=== PATIENT | male | born 1945 | race Caucasian/White ===

== ENCOUNTER → 2023-10-29 10:46 | Outpatient (REF) | payer MEDICARE, OTHER, SELFPAY ==
[2023-10-29 11:23] LABS: % Basophils 0.6 % (0-2); % Eosinophils 2.7 % (0-6); % Immature Granulocytes 0.5 % (0-0.5); % Lymphocytes 22.3 % (20.5-51.1); % Monocytes 7.8 % (1.7-9.3); % Neutrophils 66.1 % (42.2-75.2); Absolute Basophils 0.1 10^3/uL (0-0.2); Absolute Eosinophils 0.3 10^3/uL (0-0.7); Absolute Immature Granulocytes 0.1 10^3/uL (0-0.05); Absolute Lymphocytes 2.1 10^3/uL (1.2-3.4); Absolute Monocytes 0.8 10^3/uL (0.1-0.6); Absolute Neutrophils 6.3 10^3/uL (1.4-6.5); Hematocrit 40.1 % (39.0-52.0); Hemoglobin 13.8 g/dL (13.0-18.0); Mean Corp Hgb Conc. 34.4 g/dL (33.0-37.0); Mean Corpuscular Hgb 30.9 pg (27.0-31.0); Mean Corpuscular Volume 89.9 fL (80.0-94.0); Mean Platelet Volume 9.6 fL (7.4-10.4); Nucleated Red Blood Cells % 0 % (-); Platelet Count 214 10^3/uL (130-400); Red Blood Cell Count 4.46 10^6/uL (4.70-6.10); Red Cell Dist. Width 13.6 % (11.5-14.5); White Blood Cell Count 9.6 10^3/uL (4.8-10.8)
[2023-10-29 11:41] LABS: INR 1.59; PT 18.8 Sec (11.4-14.6)
[2023-10-29 11:52] LABS: ALT (SGPT) 18 U/L (0-50); AST (SGOT) 28 U/L (17-59); Alkaline Phosphatase 71 U/L (38-126); Blood Urea Nitrogen 22 mg/dl (9-20); Calcium 9.4 mg/dl (8.4-10.2); Carbon Dioxide 23 mmol/L (22-30); Chloride 102 mmol/L (98-107); Glucose 150 mg/dl (70-99); Magnesium 1.3 mg/dl (1.6-2.3); Potassium 4.6 mmol/L (3.5-5.1); Sodium 131 mmol/L (135-145); Total Bilirubin 0.7 mg/dl (0.2-1.3); Total Protein 7.3 g/dl (6.3-8.2); eGFR 47.65
== END ==
LOC: SDSPAT 10:46
PROVIDERS: ATTENDING PHYSICIAN Internal Medicine Cardiovascular Disease; FAMILY PHYSICIAN Family Medicine; OTHER PHYSICIAN Internal Medicine Cardiovascular Disease
DX: Z01.818 Encounter for other preprocedural examination (principal); I48.0 Paroxysmal atrial fibrillation; I48.3 Typical atrial flutter
CPT/HCPCS: 36415; 75572; 80053; 83735; 85025; 85610; 86850; 86900; 86901; 93005; Q9967

== ENCOUNTER 2023-11-15 05:54 | Day surgery (SDC) | payer MEDICARE, OTHER, SELFPAY ==
[2023-10-29 11:00] VITALS: BMI 29.5
[2023-11-12 09:33] LABS: Magnesium 1.3 mg/dl (1.6-2.3); Sodium 133 mmol/L (135-145)
[2023-11-15] VITALS (19 sets, daily range): BP systolic 132–181; BP diastolic 67–101; BMI 28.2
[2023-11-15 06:50] LABS: Glucose - Point of Care 126 mg/dl (70-99)
[2023-11-15 09:13] LABS: ACT-LR - POC 382 Seconds (116-155)
[2023-11-15 09:34] LABS: ACT-LR - POC 294 Seconds (116-155)
--- NOTE | 2023-11-15 10:18 | ITS.CL.ABL ---
[employer] - Ablation
Ablation
Procedure Report:
ELECTROPHYSIOLOGY ABLATION STUDY
DATE:: November 15, 2023 REFERRING: Dr. Damien Gregory
INDICATION: Paroxysmal supraventricular tachycardia in the form of atrial fibrillation. Also with documented typical atrial flutter
HISTORY: See H and P. As above
ANTIARRHYTHMIC DRUG: Limited in medications due to bradycardia
PRE-PROCEDURE ANNIE: No atrial thrombus on intracardiac ultrasound
PRESENTING RHYTHM: Sinus bradycardia
'TIME-OUT': called and confirmed.
SEDATION/ANESTHESIA: provided via the anesthesia department using general anesthesia (LMA).
INTRAVENOUS/ARTERIAL ACCESS:
Right femoral venous - 8Fr
Left femoral venous - 8 Fr, 6 Fr
Ultrasound guidance for bilateral femoral vein access was utilized by me to obtain access with demonstration of normal anatomy
CHADS-VASC Score:
HAS-Bled Score
PROCEDURE:
1. A decapolar CS catheter was placed within the CS for mapping and pacing. This was also used as the reference catheter for the 3-D map. We performed the CTI flutter ablation upfront with a 10 Welsh steerable sheath which was also used for the
transseptal puncture. Utilizing a 4 mm tactic cath from the tricuspid annulus back towards the IVC bidirectional block was brought about with interest was conduction time of 160 ms utilizing the 4 mm tactic cath at 30 W, 42 degrees and up to 22nd
lesions.
2. The intracardiac ultrasound catheter was positioned in the RA to identify the FO for targeting of transseptal puncture, assist in identification of the pulmonary vein ostia, monitoring pre and post ablation pulmonary vein flow velocities,
monitoring for 'bubble' formation during RF application as a sign of thermal injury, and to monitor for pericardial effusion during mapping and ablation procedure. Left atrial size, LV ejection fraction, and pulmonary vein flows were monitored
pre and post ablation procedure. The other valves were inspected and found to be free of significant regurgitation or stenosis.
3. Half of the calculated heparin bolus was administered prior to the first transeptal puncture. Transseptal puncture was performed to diagnose RA and LA pressure so that safety of LA mapping and ablation could be further assessed, and to access
the left atrium and pulmonary veins for mapping and ablation. This entailed advancing an 10 Welsh steerable with dilator into the superior vena cava and withdrawing both (monitoring intracardiac ultrasound, fluoroscopy and tip pressure) with the
tip oriented toward the atrial septum. The fossa ovalis was engaged (indicated by sudden displacement of the sheath tip as well as tenting of the fossa seen on intracardiac ultrasound). Left atrial access required a pass with the [place]
needle extended. Left atrial catheter position was confirmed by pressure monitoring (RA mean pressure 8 mm Hg and LA mean presure 14 mm Hg), LA saturation (99%), as well as fluoroscopy. The sheath was advanced over the dilator and positioned in
the left atrium. The remainder of the calculated heparin bolus was administered and heparin was
infused to maintain ACT at 300 -350 seconds throughout the case.
4. RA pacing was performed via the proximal decapolar poles and LA pacing was performed via the distal decapolr poles.
5. A quadrapolar catheter was first positioned at the His position for His Bundle recording which was tagged via the 3-D Navex sytem, and then passed to the RVA for RV pacing and recording.
6. The ablation catheter was positioned through one of the transeptal seaths and a 20 pole ring mapping catheter was positioned through the second seath into the LA and then the ostia of the LIPV, LSPV, RSPV and the RIPV.
7. Next, a 3-D map was created using Navex. A 3-D reconstructed CT image was compared to the 3-D Navex map to assist in anatomic interpretation, mapping and ablation. The CT image and the NavX image were fused.
8. After transseptal puncture the 10 Welsh steerable sheath was exchanged for a 12 Welsh Contour sheath and the pulsed light catheter was brought to the left atrium. Utilizing both ostial and antral lesions around each of the 4 pulmonary veins
entrance and exit block was confirmed in all 4 pulmonary veins utilizing pulsed field ablation. Patient was inducible for any other tachyarrhythmias after ablation.
9. Normal sinus node AV node function were noted.
TOTAL FLOURO TIME: 21.9 minutes 183 mGy
TOTAL RF DURATION: 0 minutes
REVERSAL OF HEPARIN: 35 mg of protamine, slow IV administration
COMPLICATIONS:
None
Intracardiac US shows no pericardial effusion post ablation.
SUMMARY:
Complex left atrial mapping and ablation.
CTI flutter ablation as above and PVI with pulse select catheter�PFA
RECOMMENDATIONS:
1. Admit to monitored bed.
2. Resume anticoagulation
3. Out of bed 4 hours consider same-day discharge
4. Continue Cardizem and low-dose and Eliquis for minimum 3 months
Copy to: Dr. Damien Gregory
[2023-11-15] MEDS: ANESTHETIC LOZENGE 1 LOZENGE PO (10:23)
[2023-11-15] MEDS: TORADOL 15 MG IV (11:00)
[2023-11-15] MEDS: ZOFRAN 4 MG IV (11:09)
[2023-11-15] MEDS: MAALOX 30 ML PO (11:16)
[2023-11-15] MEDS: PROTONIX 40 MG PO (12:30)
--- NOTE | 2023-11-15 14:27 | W.PN.UPDATE ---
Addendum entered and electronically signed by CASANDRA Gonsales 11/15/23 17:09:
ADD: pt had not urinated as previously stated. He was somewhat uncomfortable and bladder scan revealed >1L urine. He was straight cathed and felt much better. He will continue with discharge today, with instructions to return to the ER if he does
not urinate independently over the next 12-14 hours.
Original Note:
Update Note
Progress Note Update
Pt seen post PFA. Bilat groin sites with FOE closure, no ht/bleeding, non tender. OOB ambulating, urinating without difficulty. Initially had chest discomfort post procedure, about 7/10. Moderate relief with toradol as well as protonix/maalox, and
now it has improved to 2/10. Has remained hemodynamically stable and has had no other symptoms. Post EKG NSR 60s, no acute changes. Resume eliquis tonight, continue plavix as before. Followup with Dr. Gregory as scheduled. Home today if groin
site/tele remain stable, and pain is improved/resolved.
[2023-11-15] MEDS: FLOMAX 0.400000000000000022 MG PO (16:51)
== END 2023-11-15 17:00 | disposition home or self-care (01) ==
LOC: CATH 05:54
PROVIDERS: ATTENDING PHYSICIAN Internal Medicine Cardiovascular Disease; FAMILY PHYSICIAN Family Medicine; OTHER PHYSICIAN Internal Medicine Cardiovascular Disease; OTHER PHYSICIAN Physician Assistant
DX: I48.0 Paroxysmal atrial fibrillation (principal); I48.3 Typical atrial flutter; R06.09 Other forms of dyspnea; R00.0 Tachycardia, unspecified; I49.3 Ventricular premature depolarization; I10 Essential (primary) hypertension; E78.5 Hyperlipidemia, unspecified; I25.10 Atherosclerotic heart disease of native coronary artery without angina pectoris; Z95.5 Presence of coronary angioplasty implant and graft; I34.0 Nonrheumatic mitral (valve) insufficiency; J44.9 Chronic obstructive pulmonary disease, unspecified; E11.9 Type 2 diabetes mellitus without complications; K21.9 Gastro-esophageal reflux disease without esophagitis; N40.0 Benign prostatic hyperplasia without lower urinary tract symptoms; M10.9 Gout, unspecified; Z87.891 Personal history of nicotine dependence; Z79.01 Long term (current) use of anticoagulants; Z79.02 Long term (current) use of antithrombotics/antiplatelets; Z79.84 Long term (current) use of oral hypoglycemic drugs
CPT/HCPCS: C1730; C1733; C1769; C1766; C2630; C1759; 36415; 76937; 82962; 83735; 84295; 85347; 86900; 86901; 93005; 93656; 93657; C1892; C1894